=== PATIENT | female | born 1945 | race Caucasian/White ===

== ENCOUNTER → 2017-01-14 | Outpatient (CLI) | payer BC ==
[~2017-01-14] MED LIST: GLUCOPHAGE XR500 M1 PO; MOBIC 7.5MG7.5 MG PO; NORVASC 5MG5 MG/TAB PO
== END ==
LOC: MC.RAD 06:52
DX: Z12.31 Encounter for screening mammogram for malignant neoplasm of breast (principal)

== ENCOUNTER 2017-09-10 13:41 | Outpatient (CLI) | payer BC ==
[~2017-09-10] VITALS: Ht 152.4 cm; Wt 85.2 kg
[2017-09-10] MEDS ORDERED: TENORMIN 5050 MG/TAB PO (14:24)
[2017-09-10] MEDS ORDERED: LIPITOR20 MG PO (14:24)
[2017-09-10] MEDS ORDERED: EPA FISH OIL1 SGL PO (14:25)
[2017-09-10] MEDS ORDERED: VITAMIN D31000 I1 PO (14:25)
[2017-09-10] MEDS ORDERED: HYZAAR 25 MG-101 TAB PO (14:26)
[2017-09-10] MEDS ORDERED: CLARITIN 1010 MG/TAB PO (14:26)
[2017-09-10] MEDS ORDERED: NATURAL E400 IU PO (14:27)
[2017-09-10 14:29] VITALS: BP 147/63; PULSE 61; TEMP 97.7
== END 2017-09-10 15:00 | disposition home or self-care (01) ==
LOC: EUO 13:41
DX: M81.0 Age-related osteoporosis without current pathological fracture (principal)
CPT/HCPCS: J3489

== ENCOUNTER → 2018-01-15 | Outpatient (CLI) | payer BC ==
[~2018-01-15] MED LIST changes: +CLARITIN 1010 MG/TAB PO; +EPA FISH OIL1 SGL PO; +HYZAAR 25 MG-101 TAB PO; +LIPITOR20 MG PO; +NATURAL E400 IU PO; +TENORMIN 5050 MG/TAB PO; +VITAMIN D31000 I1 PO
== END ==
LOC: MC.RAD 13:33
DX: Z12.31 Encounter for screening mammogram for malignant neoplasm of breast (principal)

== ENCOUNTER 2018-07-30 14:44 | Outpatient (CLI) | payer BC ==
[~2018-07-30] VITALS: Ht 152.4 cm; Wt 85.1 kg
[2018-07-30 15:15] VITALS: BP 150/52; PULSE 64; TEMP 96.9
== END 2018-07-30 16:04 | disposition home or self-care (01) ==
LOC: EUO 14:44
DX: M81.0 Age-related osteoporosis without current pathological fracture (principal); Z79.899 Other long term (current) drug therapy
CPT/HCPCS: J3489

== ENCOUNTER → 2019-01-22 | Outpatient (CLI) | payer MEDICARE, BC | LOC: MC.RAD 07:01 | DX: Z12.31 Encounter for screening mammogram for malignant neoplasm of breast (principal) ==

== ENCOUNTER 2019-09-07 14:51 | Emergency (ER) | payer MEDICARE, BC ==
[~2019-09-07] VITALS: Ht 152.4 cm; Wt 78.0 kg
[2019-09-07 14:56] VITALS: TEMP 97.7
[2019-09-07 15:29] LABS: INR 2.8 (0.8-3.0)
[2019-09-07 15:33] LABS: ALANINE AMINOTRANSFERASE 12 U/L (9-52); ALBUMIN 4.1 gm/dL (3.5-5.0); ALKALINE PHOSPHATASE 79 U/L (50-136); ANION GAP 13 mmol/L (7-16); AST,SGOT 29 U/L (15-37); BILIRUBIN,TOTAL 0.5 mg/dL (0.0-1.0); BLOOD UREA NITROGEN 36 mg/dL (7-17); CARBON DIOXIDE 24 mmol/L (22-30); CHLORIDE 102 mmol/L (98-107); CREATININE, serum 1.35 (0.52-1.25); GLUCOSE 98 mg/dL (74-106); POTASSIUM 3.8 mmol/L (3.4-5.0); SODIUM 139 mmol/L (137-145); TOTAL PROTEIN 7.2 gm/dL (6.4-8.2)
[2019-09-07 15:36] LABS: C-REACTIVE PROTEIN 0.5 mg/dL (0.0-0.9)
[2019-09-07 15:41] LABS: TROPONIN-I < 0.012 ng/mL (0.000-0.035)
[2019-09-07 15:47] LABS: BASO # 0.1 (0.0-0.2); EOS # 0.1 (0.0-0.7); EOS % 1.8 % (0-4.0); GRAN % 53.9 % (42.2-75.2); HEMOGLOBIN 11.9 g/dl (12.5-16.0); LYMPH # 2.4 (1.2-3.4); LYMPH % 32.4 % (20.0-51.0); MEAN CELL VOLUME 92 fl (80.0-100.0); MEAN CORPUSCULAR HEMOGLOBIN 30 pg (27.0-31.0); MEAN CORPUSCULAR HGB CONC 33 g/dl (33.0-37.0); MONO # 0.8 (0.1-0.6); MONO % 10.5 % (1.7-9.3); PLATELET COUNT 285 K/mm3 (130-400); RED BLOOD COUNT 3.96 M/mm3 (4.10-5.30)
[2019-09-07 15:49] VITALS: BP 115/56
[2019-09-07 15:49] LABS: HEMATOCRIT 36.6 % (37.0-47.0)
[2019-09-07] MEDS ORDERED: ASPIRIN 81M81 MG/TA2 PO (16:06)
[2019-09-07] MEDS ORDERED: CORDARONE200 MG/TAB PO (16:06)
[2019-09-07] MEDS ORDERED: CALCIUM 600MG+D1 TAB PO (16:07)
[2019-09-07] MEDS ORDERED: JARDIANCE25 PO (16:07)
[2019-09-07] MEDS ORDERED: LASIX 20MG TABL20 MG PO (16:07)
[2019-09-07] MEDS ORDERED: GLUCOPHAGE1000 MG PO (16:08)
[2019-09-07] MEDS ORDERED: KLOR-CON SPRIN10 MEQ PO (16:08)
[2019-09-07] MEDS ORDERED: COUMADIN 5MG5 MG/TAB PO (16:08)
[2019-09-07] MEDS ORDERED: TENORMIN 2525 MG/TAB PO (16:10)
[2019-09-07 16:50] LABS: COLLECTION METHOD CLEAN CATCH
[2019-09-07 16:56] LABS: PH 5 (5-8); SQUAMOUS EPITHELIAL 0-2 /hpf; URINE APPEARANCE Hazy; URINE BACTERIA Rare /hpf; URINE BILIRUBIN Negative (NEGATIVE); URINE BLOOD 1+ (NEGATIVE); URINE COLOR Yellow; URINE GLUCOSE 3+ (NEGATIVE); URINE KETONE Negative (NEGATIVE); URINE LEUKOCYTE ESTERASE 2+ (NEGATIVE); URINE NITRATE Negative (NEGATIVE); URINE PROTEIN(semi-quant) Negative (NEGATIVE); URINE RBC 0-2 /hpf; URINE UROBILINOGEN Negative (NEGATIVE)
[2019-09-07 17:40] VITALS: PULSE 80
== END 2019-09-07 17:40 | disposition home or self-care (01) ==
LOC: COL.ER 14:51
PROVIDERS: Emergency Medicine
DX: N17.9 Acute kidney failure, unspecified (principal); I25.10 Atherosclerotic heart disease of native coronary artery without angina pectoris; E11.9 Type 2 diabetes mellitus without complications; I10 Essential (primary) hypertension; E78.00 Pure hypercholesterolemia, unspecified; Z95.1 Presence of aortocoronary bypass graft; Z95.9 Presence of cardiac and vascular implant and graft, unspecified; Z79.82 Long term (current) use of aspirin; Z79.84 Long term (current) use of oral hypoglycemic drugs; Z79.01 Long term (current) use of anticoagulants
CPT/HCPCS: J7030

== ENCOUNTER 2019-09-25 12:56 | Outpatient (CLI) | payer MEDICARE, BC ==
[~2019-09-25] VITALS: Ht 152.4 cm; Wt 76.0 kg
[~2019-09-25 12:56] MED LIST changes: +ASPIRIN 81M81 MG/TA2 PO; +CALCIUM 600MG+D1 TAB PO; +CORDARONE200 MG/TAB PO; +COUMADIN 5MG5 MG/TAB PO; +GLUCOPHAGE1000 MG PO; +JARDIANCE25 PO; +KLOR-CON SPRIN10 MEQ PO; +LASIX 20MG TABL20 MG PO; +TENORMIN 2525 MG/TAB PO
[2019-09-25 14:20] VITALS: BP 121/67; PULSE 75; TEMP 98.1
== END 2019-09-25 17:44 | disposition home or self-care (01) ==
LOC: EUO 12:56
DX: M81.0 Age-related osteoporosis without current pathological fracture (principal)
CPT/HCPCS: J3489

== ENCOUNTER 2019-11-20 14:18 | Outpatient (RCR) | payer MEDICARE, BC | END 2019-11-24 | disposition home or self-care (01) | LOC: COL.CR | DX: Z48.812 Encounter for surgical aftercare following surgery on the circulatory system (principal); Z95.1 Presence of aortocoronary bypass graft ==

== ENCOUNTER 2019-12-09 13:12 | Outpatient (RCR) | payer MEDICARE, BC | END 2019-12-16 15:31 | disposition home or self-care (01) | LOC: COL.CR 13:12 | DX: Z48.812 Encounter for surgical aftercare following surgery on the circulatory system (principal); Z95.1 Presence of aortocoronary bypass graft ==

== ENCOUNTER 2020-03-22 07:55 | Outpatient (CLI) | payer MEDICARE, BC ==
[2020-03-22] MEDS ORDERED: CALCIUM 600-D 61 TAB PO (08:32)
[2020-03-22] MEDS ORDERED: FERRALET 901 TAB PO (08:33)
[2020-03-22] MEDS ORDERED: TYLENOL 325MG325 MG PO (08:34)
[2020-03-22] MEDS ORDERED: PEPCID 20MG TAB20 MG PO (08:34)
[2020-03-22] MEDS ORDERED: LASIX 20MG TABL20 MG PO (08:36)
[2020-03-22] MEDS ORDERED: HYZAAR 25 MG-101 TAB PO (08:37)
[2020-03-22] MEDS ORDERED: LOPRESSOR 225 MG/TAB PO (08:37)
[2020-03-22] MEDS ORDERED: NITROSTAT0.4 MG/TAB SL (08:38)
[2020-03-22] MEDS ORDERED: VITAMIN D31000 I1 PO (08:39)
[2020-03-22] MEDS ORDERED: ZOFRAN 4MG T4 MG/TAB PO (08:39)
[2020-03-22] MEDS ORDERED: NATURAL E400 IU PO (08:40)
[2020-03-22] MEDS ORDERED: CEPHALEXIN500 M1 PO (09:15)
[2020-03-22 09:48] VITALS: BP 158/73; PULSE 78; TEMP 98.3
--- NOTE | 2020-03-22 09:48 | NUR ---
Discharge instructions given and transferred to private car by gordo
== END 2020-03-22 10:00 | disposition home or self-care (01) ==
LOC: COL.CAR 07:55
DX: I48.0 Paroxysmal atrial fibrillation (principal); I47.1 Supraventricular tachycardia

== ENCOUNTER 2020-07-26 05:18 | Day surgery (SDC) | payer MEDICARE, BC ==
[2020-07-26] VITALS (12 sets, daily range): BP systolic 113–153; BP diastolic 40–77; PULSE 57–77; TEMP 98–99.3
[~2020-07-26] VITALS: Ht 152.4 cm; Wt 81.0 kg
[~2020-07-26 05:18] MED LIST changes: +CALCIUM 600-D 61 TAB PO; +CEPHALEXIN500 M1 PO; +COUMADIN 1010 MG/TAB PO; -COUMADIN 5MG5 MG/TAB PO; +COUMADIN 77.5 MG/TAB PO; +DULCOLAX STOOL100 MG PO; +FERRALET 901 TAB PO; +FERRO-TIME325 MG PO; +FISH OIL 1000MG1 CAP PO; +FOLIC ACID 11 MG/TA1 PO; -GLUCOPHAGE1000 MG PO; +LOPRESSOR 225 MG/TAB PO; +MICONAZOLE 72% VG; +MOBIC15 MG PO; +NITROSTAT0.4 MG/TAB SL; +PEPCID 20MG TAB20 MG PO; +TUMS ULTRA ST1000 MG PO; +TYLENOL 325MG325 MG PO; +VITAMINC1000TA PO; +ZOFRAN 4MG T4 MG/TAB PO
[2020-07-26 05:56] LABS: PROTHROMBIN TIME 10.9 SECONDS (9.7-12.8)
--- NOTE | 2020-07-26 09:45 | NUR ---
PT TO ROOM 328 PER BED WITH REPORT FROM ASHLEY CARRILLO PACU @ 0927. LUNGS CTA, BOWEL SOUNDS HYPO, DRESSING TO LEFT KNEE CDI WITH ABNER WRAP OVER GAUZE. SCDS AND TEDS APPLIED ORDERED. IV TO PUMP.
--- NOTE | 2020-07-26 11:29 | NUR ---
SW met with the patient to discuss discharge plan. The patient lives in [place] with her , Natan (ph#[phone]). She reports independence with ADLs and has a cane and FWW. The patient's PCP is Dr. Kamlesh Ramirez and she receives her medications at [facility]. She reports no difficulties obtaining her meds. The patient does not have advanced directives and she was not interested in completing a DPOA-HC at this time. The patient plans to return home with her and receive outpatient PT at [facility] upon discharge. No additional needs at this time.
--- NOTE | 2020-07-26 11:56 | NUR ---
PT RESTING IN BED EATING LUNCH. DENIES PAIN OR NEEDS AT THIS TIME.
--- NOTE | 2020-07-26 13:04 | NUR ---
PT UP TO BR WITH SBAX1. HAD LG BM AND VOIDED. RETURNED TO RECLINER. IV FLUIDS COMPLETE. PT EATING AND DRINKING WITH NO N/V. Operative leg elevated on pillow and ice bag applied.
--- NOTE | 2020-07-26 20:30 | NUR ---
Initial shift assessment done- states would like 2 [place] before bed tonight- states left knee pain 03/27-- manuel wrap dry, ice to knee, SCD,s on bilaterally. Taking food/fluids without nausea. Using IS every hour while awake. Up to bathroom with walker and assist-tolerated well, voiding clear yellow urine.
--- NOTE | 2020-07-26 22:00 | NUR ---
Did receive [place] 2 tabs about an hour ago-- now up in [place] for short walk with walker and assistance- tolerated well.
[2020-07-27 00:10] VITALS: BP 131/56; PULSE 72; TEMP 98.3
[2020-07-27 03:44] VITALS: BP 131/59; PULSE 71; TEMP 98.3
--- NOTE | 2020-07-27 05:51 | NUR ---
Sleeping well tonight, has not requested pain meds since before bed- new ice to left knee , VSS, has been up to void 3-4 times last night
[2020-07-27 07:21] VITALS: BP 150/65; PULSE 72; TEMP 97.8
[2020-07-27 08:16] LABS: HEMATOCRIT 37.2 % (37.0-47.0); HEMOGLOBIN 12.2 g/dl (12.5-16.0)
--- NOTE | 2020-07-27 08:56 | NUR ---
PT C/O PAIN 06/27. PO PAIN MEDS GIVEN ORDERED. ABNER WRAP REMOVED TEDS APPLIED. ENCOURAGED PT TO CONTINUE TO SIT IN RECLINER. EDUCATED PT ON IMPORTANCE OF KEEPING LEG STRAIGHT AND NOT RESTING WITH A BEND IN THE KNEE. PT VERBALIZED UNDERSTANDING.
--- NOTE | 2020-07-27 10:49 | NUR ---
First visit from the email operations manager. No needs right now.
[2020-07-27 11:22] VITALS: BP 166/54; PULSE 65; TEMP 98.2
--- NOTE | 2020-07-27 16:05 | NUR ---
DISCHARGE INSTRUCTIONS REVIEWED WITH PT. QUESTIONS ANSWERED, PATIENT WAITING FOR RIDE.
--- NOTE | 2020-07-27 16:44 | NUR ---
DISCHARGE INSTRUCTIONS GIVEN TO PT. QUESTIONS ANSWERED. PRESCRIPTIONS GIVEN. PT TO FRONT IN WHEEL CHAIR.
== END 2020-07-27 16:46 | disposition home or self-care (01) ==
LOC: SDCO 05:18 → JCC 07:30 → EDSTATUS 07:30 → JCC 07-27 16:46 → SDCO 07-27 16:46
PROVIDERS: Orthopaedic Surgery Sports Medicine; Registered Nurse
DX: M17.12 Unilateral primary osteoarthritis, left knee (principal); E11.9 Type 2 diabetes mellitus without complications; E78.5 Hyperlipidemia, unspecified; I11.9 Hypertensive heart disease without heart failure; I35.0 Nonrheumatic aortic (valve) stenosis; I47.1 Supraventricular tachycardia; I48.91 Unspecified atrial fibrillation; G47.33 Obstructive sleep apnea (adult) (pediatric); Z95.818 Presence of other cardiac implants and grafts; Z98.51 Tubal ligation status; Z95.1 Presence of aortocoronary bypass graft; Z79.899 Other long term (current) drug therapy; Z79.01 Long term (current) use of anticoagulants; Z79.84 Long term (current) use of oral hypoglycemic drugs; Z20.828 Contact with and (suspected) exposure to other viral communicable diseases; Z85.828 Personal history of other malignant neoplasm of skin; Z79.82 Long term (current) use of aspirin
CPT/HCPCS: A9284; C1776; J0690; J1815; J2250; J2405; J2704; J3010; J7030

== ENCOUNTER → 2021-02-06 | Outpatient (CLI) | payer MEDICARE, BC ==
[~2021-02-06] MED LIST changes: -CALCIUM 600-D 61 TAB PO; +LIPITOR 40MG TA40 MG PO; -LIPITOR20 MG PO; +LOPRESSOR100 MG PO; +PACERONE200 MG PO; +SUPER CALCIUM W1 TA2 PO
== END ==
LOC: COL.RAD 08:00
DX: Z20.822 Contact with and (suspected) exposure to COVID-19 (principal)

== ENCOUNTER 2021-02-23 09:19 | Day surgery (SDC) | payer MEDICARE, BC ==
[~2021-02-23] VITALS: Ht 152.4 cm; Wt 78.2 kg
[~2021-02-23 09:19] MED LIST changes: -LOPRESSOR100 MG PO; -PACERONE200 MG PO
[2021-02-23] MEDS ORDERED: LOPRESSOR100 MG PO (09:57)
[2021-02-23] MEDS ORDERED: PACERONE200 MG PO ×2 (10:02→10:21)
[2021-02-23 10:04] VITALS: BP 133/65; PULSE 49; TEMP 98.7
--- NOTE | 2021-02-23 13:20 | NUR ---
Dr. Mckee has been in to see pt and discuss poc. Cardioversion cancelled. Pt is noted to have a rhythm change at time of departure, rate 80's-90's, irregular. Dr. Mckee informed through Noreen CARRILLO. Due to paroxysmal nature of the AFIB, plan remains to dc patient with instructions to take her amiodarone 200 mg BID and follow up with cardiology. Pt verbalized understanding of instructions. No iv was initiated during pt's visit. I walked with pt to exit with her .
== END 2021-02-23 11:00 | disposition home or self-care (01) ==
LOC: COL.CAR 09:19
DX: I48.0 Paroxysmal atrial fibrillation (principal); E11.9 Type 2 diabetes mellitus without complications; I10 Essential (primary) hypertension; I25.10 Atherosclerotic heart disease of native coronary artery without angina pectoris; K21.9 Gastro-esophageal reflux disease without esophagitis; G47.33 Obstructive sleep apnea (adult) (pediatric); E78.5 Hyperlipidemia, unspecified; M19.90 Unspecified osteoarthritis, unspecified site; Z96.652 Presence of left artificial knee joint; Z88.8 Allergy status to other drugs, medicaments and biological substances; Z79.82 Long term (current) use of aspirin; Z79.01 Long term (current) use of anticoagulants; Z53.8 Procedure and treatment not carried out for other reasons

== ENCOUNTER 2022-02-22 14:27 | Inpatient (IN) | payer MEDICARE, BC ==
[~2022-02-22] VITALS: Ht 152.4 cm; Wt 80.4 kg
[~2022-02-22 14:27] MED LIST changes: +LOPRESSOR100 MG PO; +MULTAQ400 MG PO; +PACERONE200 MG PO
[2022-02-28 09:15] VITALS: BP 96/84; PULSE 143; TEMP 98.1
[2022-02-28 09:26] LABS: BASO % 0.8 % (0.0-2.0); EOS # 0.1 K/mm3 (0.0-0.7); EOS % 1.3 % (0.0-4.0); GRAN # 2.7 K/mm3 (1.4-6.5); GRAN % 56.9 % (42.2-75.2); HEMATOCRIT 41.6 % (37.0-47.0); LYMPH # 1.3 K/mm3 (1.2-3.4); LYMPH % 26.3 % (20.0-51.0); MEAN CELL VOLUME 89 fl (80.0-100.0); MEAN CORPUSCULAR HEMOGLOBIN 30 pg (27-31); MEAN CORPUSCULAR HGB CONC 34 g/dl (33.0-37.0); MEAN PLATELET VOLUME 9.8 fl (7.4-10.4); MONO # 0.7 K/mm3 (0.1-0.6); MONO % 14.5 % (1.7-9.3); PLATELET COUNT 218 K/mm3 (130-400); REDCELL DISTRIBUTION WIDTH-CV 14.2 % (11.5-14.5)
[2022-02-28 09:34] LABS: INR 2.8 (0.8-3.0); PROTHROMBIN TIME 30.9 SECONDS (9.7-12.8)
[2022-02-28 09:42] LABS: BILIRUBIN,TOTAL 0.8 mg/dL (0.2-1.2); CALCIUM 9.8 mg/dL (8.4-10.2); CREATININE, serum 1.1 mg/dL (0.57-1.11); MAGNESIUM 1.5 mg/dL (1.6-2.6); POTASSIUM 3.9 mmol/L (3.5-4.5); TOTAL PROTEIN 6.8 gm/dL (6.2-8.1)
[2022-02-28 12:31] VITALS: BP 114/75; PULSE 117; TEMP 98
[2022-02-28 15:18] VITALS: BP 107/71; PULSE 68; TEMP 98.5
--- NOTE | 2022-02-28 19:25 | NUR ---
Pt tolerated first dose of Sotalol without issues. No chest pain, dizziness or palpitations. IV started in Express to LFA. POC discussed with patient. No needs at this time.
--- NOTE | 2022-02-28 20:00 | NUR ---
PATIENT IS A&O. NOTED ELEVATED HR IN LOW 100'S ON TELE, IRREGULAR. PATIENT IS SOTOLOL DAY 1. ALL OTHER VSS. DENIES CHEST PAIN, SOA OR DIZZINESS. INDEPENDENT IN ROOM. NO C/O N/V. LEFT FORARM IV TO INT. HS MEDS GIVEN. HEAD TO TOE ASSESSMENT COMPLETE. NO OTHER NEEDS AT THIS TIME. CALL LIGHT IN REACH.
[2022-02-28 20:26] VITALS: BP 110/93; PULSE 80; TEMP 98.1
[2022-03-01] VITALS (7 sets, daily range): BP systolic 97–153; BP diastolic 54–88; PULSE 51–88; TEMP 97.6–98.3
[2022-03-01 06:33] LABS: BASO # 0.1 K/mm3 (0.0-0.2); BASO % 1.2 % (0.0-2.0); EOS # 0.1 K/mm3 (0.0-0.7); EOS % 2.6 % (0.0-4.0); GRAN % 46.7 % (42.2-75.2); HEMATOCRIT 40.8 % (37.0-47.0); HEMOGLOBIN 13.4 g/dl (12.5-16.0); LYMPH # 1.6 K/mm3 (1.2-3.4); LYMPH % 37.7 % (20.0-51.0); MEAN CELL VOLUME 91 fl (80.0-100.0); MEAN CORPUSCULAR HEMOGLOBIN 30 pg (27-31); MEAN CORPUSCULAR HGB CONC 33 g/dl (33.0-37.0); MEAN PLATELET VOLUME 9.7 fl (7.4-10.4); MONO # 0.5 K/mm3 (0.1-0.6); MONO % 11.6 % (1.7-9.3); PLATELET COUNT 209 K/mm3 (130-400); REDCELL DISTRIBUTION WIDTH-CV 13.8 % (11.5-14.5)
[2022-03-01 06:44] LABS: CALCIUM 9.1 mg/dL (8.4-10.2); CREATININE, serum 0.9 mg/dL (0.57-1.11); MAGNESIUM 1.9 mg/dL (1.6-2.6); POTASSIUM 3.7 mmol/L (3.5-4.5)
--- NOTE | 2022-03-01 08:11 | NUR ---
Rafi contacted regarding elevated QTC 534, this RN instructed to give medication.
[2022-03-01 08:28] LABS: INR 2.8 (0.8-3.0); PROTHROMBIN TIME 31.1 SECONDS (9.7-12.8)
--- NOTE | 2022-03-01 10:28 | NUR ---
Initial visit; Patient thanked [facility] for looking in on her and offering God's blessings.
--- NOTE | 2022-03-01 12:15 | NUR ---
smokehouse worker met with patient to discuss discharge plan. Patient currently lives at home with her Natan ([phone]) in [place]. She reports to being fully independent with her ADL's and does not utilize any DME equipment to assist with mobility. She has no home oxygen needs. PCP is Dr. Ramirez and she utilizes [facility] for medications with no cost difficulty. Patient reports that she does not have a DPOA-HC established and is not interested in creating one at this time. Education provided and the patient verbalizes her understanding. In addition to her she has 5 childre, all daughters; Kimberli, Norma, Lissette,Tatiana and Grace. Patient is planning on returning home once medically ready. Discharge plan: Home
--- NOTE | 2022-03-01 18:26 | NUR ---
Scheduled medications given. Shift assessment performed. Patient denies any pain, discomfort, or further needs at this time. SOA upon exertion noted. Patient scheduled for cardioversion tmrw AM. NPO at midnight, consent signed and on the chart. VSS. Patient A&O.
--- NOTE | 2022-03-01 22:13 | NUR ---
Patient assessed around 2034. Alert and oriented x 4, and able to make needs known. Denies having pain and discomfort. Peripheral INT to left forearm. Reports SOB and dyspnea with exertion, denies at rest. LS CTA. HRI. Telemetry in place. BSAx4. Voices no questions, needs, or concerns at this time. Aware that she is scheduled to have cardioversion tomorrow morning, and that she is NPO after midnight. Consent is signed and on the chart. In bed with call light within reach.
--- NOTE | 2022-03-01 23:03 | NUR ---
Telemetry had called and stated that it looked like patient had converted to NS. Ordered EKG and called RT: sinus rhythm with occasional supraventricular premature complexes.
[2022-03-02 03:51] VITALS: BP 138/62; PULSE 54; TEMP 98
--- NOTE | 2022-03-02 05:55 | NUR ---
Patient has denied pain and discomfort this shift. Currently in sinus rhythm, bradycardia withe HR in the 50s. Voices no questions, needs, or concerns at this time. In bed with call light within reach.
[2022-03-02 06:53] LABS: BASO % 0.9 % (0.0-2.0); EOS # 0.1 K/mm3 (0.0-0.7); EOS % 2.2 % (0.0-4.0); GRAN # 2.6 K/mm3 (1.4-6.5); GRAN % 55.1 % (42.2-75.2); HEMATOCRIT 39.3 % (37.0-47.0); HEMOGLOBIN 13.2 g/dl (12.5-16.0); LYMPH # 1.4 K/mm3 (1.2-3.4); LYMPH % 29.7 % (20.0-51.0); MEAN CELL VOLUME 89 fl (80.0-100.0); MEAN CORPUSCULAR HEMOGLOBIN 30 pg (27-31); MEAN CORPUSCULAR HGB CONC 34 g/dl (33.0-37.0); MEAN PLATELET VOLUME 10.2 fl (7.4-10.4); MONO # 0.6 K/mm3 (0.1-0.6); MONO % 11.9 % (1.7-9.3); PLATELET COUNT 207 K/mm3 (130-400); REDCELL DISTRIBUTION WIDTH-CV 13.7 % (11.5-14.5)
[2022-03-02 06:58] LABS: INR 3.5 (0.8-3.0); PROTHROMBIN TIME 39.8 SECONDS (9.7-12.8)
[2022-03-02 07:10] LABS: CALCIUM 9.2 mg/dL (8.4-10.2); CREATININE, serum 0.94 mg/dL (0.57-1.11); MAGNESIUM 1.6 mg/dL (1.6-2.6); POTASSIUM 3.7 mmol/L (3.5-4.5)
--- NOTE | 2022-03-02 07:36 | NUR ---
Rafi contacted regarding QTC of 524, Instructed to give sotalol.
[2022-03-02 08:02] VITALS: BP 129/62; PULSE 55; TEMP 97.9
--- NOTE | 2022-03-02 08:27 | NUR ---
Scheduled medications given. Shift assessment performed. VSS. Patient A&O. Patient has converted to SB. Cardioversion cancelled. Patient denies any pain, discomfort, SOA, or futher needs at this time. Call light in reach. Tele in place.
[2022-03-02] MEDS ORDERED: BETAPACE 120MG120 MG PO (11:01)
[2022-03-02 11:22] VITALS: BP 99/44; PULSE 51; TEMP 98
--- NOTE | 2022-03-02 12:50 | NUR ---
Patient deemed fit for discharge. IV DC'd, catheter intact, no signs of phlebitis. Discharge education/instructions given. All questions answered. VSS. Patient A&O. Patient denies any pain, discomfort, SOA, or further needs at this time. Patient escorted from building via wheelchair by [facility] Staff. transporting home.
== END 2022-03-02 12:00 | disposition home or self-care (01) | DRG 310 ==
LOC: MEDICAL 02-28 08:21
PROVIDERS: ADMIT Internal Medicine Cardiovascular Disease
DX: I48.0 Paroxysmal atrial fibrillation (principal); I25.10 Atherosclerotic heart disease of native coronary artery without angina pectoris; I10 Essential (primary) hypertension; E78.5 Hyperlipidemia, unspecified; I44.7 Left bundle-branch block, unspecified; Z95.1 Presence of aortocoronary bypass graft; Z79.01 Long term (current) use of anticoagulants; Z23 Encounter for immunization
CPT/HCPCS: A9270; J3475

== ENCOUNTER 2023-02-11 08:24 | Observation (INO) | payer MEDICARE, BC ==
[~2023-02-11] VITALS: Ht 152.4 cm; Wt 75.9 kg
[~2023-02-11 08:24] MED LIST changes: +BETAPACE 120MG120 MG PO
[2023-02-11 09:17] LABS: BASO # 0.1 K/mm3 (0.0-0.2); BASO % 1.1 % (0.0-2.0); EOS # 0.1 K/mm3 (0.0-0.7); EOS % 1.3 % (0.0-4.0); GRAN # 2.5 K/mm3 (1.4-6.5); GRAN % 54.1 % (42.2-75.2); HEMATOCRIT 39.8 % (37.0-47.0); HEMOGLOBIN 13.3 g/dl (12.5-16.0); LYMPH # 1.5 K/mm3 (1.2-3.4); LYMPH % 31.7 % (20.0-51.0); MEAN CELL VOLUME 90 fl (80.0-100.0); MEAN CORPUSCULAR HEMOGLOBIN 30 pg (27-31); MEAN CORPUSCULAR HGB CONC 33 g/dl (33.0-37.0); MEAN PLATELET VOLUME 9.8 fl (7.4-10.4); MONO # 0.5 K/mm3 (0.1-0.6); MONO % 11.6 % (1.7-9.3); PLATELET COUNT 274 K/mm3 (130-400); RED BLOOD COUNT 4.44 M/mm3 (4.10-5.30); REDCELL DISTRIBUTION WIDTH-CV 13.3 % (11.5-14.5)
[2023-02-11 09:25] LABS: INR 2.8 (0.8-3.0); PROTHROMBIN TIME 32.8 SECONDS (9.7-12.8)
[2023-02-11 09:32] LABS: ALANINE AMINOTRANSFERASE 20 U/L (0-55); ALBUMIN 3.7 gm/dL (3.4-4.8); ALKALINE PHOSPHATASE 45 U/L (40-150); ANION GAP 13 mmol/L (7-16); AST,SGOT 18 U/L (5-34); BILIRUBIN,TOTAL 0.5 mg/dL (0.2-1.2); BLOOD UREA NITROGEN 25 mg/dL (10-20); CALCIUM 9.6 mg/dL (8.4-10.2); CARBON DIOXIDE 23 mmol/L (23-31); CHLORIDE 106 mmol/L (98-107); CREATININE, serum 0.88 mg/dL (0.57-1.11); GLUCOSE 105 mg/dL (70-99); POTASSIUM 3.8 mmol/L (3.5-4.5); SODIUM 142 mmol/L (136-145); TOTAL PROTEIN 6.8 gm/dL (6.2-8.1)
[2023-02-11 09:44] LABS: TROPONIN-I < 0.010 ng/mL (0.00-0.033)
[2023-02-11 11:26] VITALS: BP 119/80; PULSE 114; TEMP 97.4
--- NOTE | 2023-02-11 11:31 | NUR ---
PATIENT AWAKE AND ALERT, RESTING IN BED. NO NEEDS OR COMPLAINTS. VITAL SIGNS STABLE. ADDMISSION INTAKE AND ASSESSMENT COMPLETE. PATIENT AWARE SHE IS NPO UNTIL FURTHER NOTICE FROM MD OFFICE CLERK ROUTINE.
[2023-02-11] MEDS ORDERED: COUMADIN 77.5 MG/TAB PO (13:20)
[2023-02-11 16:10] VITALS: BP 102/55; PULSE 85; TEMP 97.9
--- NOTE | 2023-02-11 18:47 | NUR ---
PATIENT AWAKE AND ALERT, RESTING IN BED, NO NEEDS OR COMPLAINTS AT THIS TIME. CARDIOVERSION CONSENT ON CHART. CALL LIGHT WITHIN REACH.
[2023-02-11 19:25] VITALS: BP 119/76; PULSE 102; TEMP 97.5
[2023-02-12] VITALS (14 sets, daily range): BP systolic 98–151; BP diastolic 30–90; PULSE 20–87; TEMP 97.3–98
[2023-02-12 07:09] LABS: INR 2.6 (0.8-3.0); PROTHROMBIN TIME 30.3 SECONDS (9.7-12.8)
[2023-02-12 07:21] LABS: CALCIUM 9.1 mg/dL (8.4-10.2); CREATININE, serum 0.77 mg/dL (0.57-1.11); POTASSIUM 3.7 mmol/L (3.5-4.5)
[2023-02-12 07:30] LABS: BASO % 0.9 % (0.0-2.0); EOS # 0.1 K/mm3 (0.0-0.7); EOS % 1.9 % (0.0-4.0); GRAN # 2.1 K/mm3 (1.4-6.5); GRAN % 48.2 % (42.2-75.2); HEMATOCRIT 38.3 % (37.0-47.0); HEMOGLOBIN 13.3 g/dl (12.5-16.0); LYMPH # 1.6 K/mm3 (1.2-3.4); LYMPH % 37.1 % (20.0-51.0); MEAN CELL VOLUME 88 fl (80.0-100.0); MEAN CORPUSCULAR HEMOGLOBIN 31 pg (27-31); MEAN CORPUSCULAR HGB CONC 35 g/dl (33.0-37.0); MEAN PLATELET VOLUME 9.6 fl (7.4-10.4); MONO # 0.5 K/mm3 (0.1-0.6); MONO % 11.7 % (1.7-9.3); PLATELET COUNT 249 K/mm3 (130-400); RED BLOOD COUNT 4.36 M/mm3 (4.10-5.30); REDCELL DISTRIBUTION WIDTH-CV 13.2 % (11.5-14.5)
--- NOTE | 2023-02-12 08:26 | NUR ---
Call received from laboratory technician about schedule time for pt int. Pt notified.
--- NOTE | 2023-02-12 09:04 | NUR ---
Call placed to dr Jensen reporting last QTc 539. Ordered to proceed to give sotalol.
--- NOTE | 2023-02-12 09:41 | NUR ---
MIMA met with the patient to discuss discharge plan. The patient lives in [place] with her , Natan (ph#[phone]). She reports independence with ADLs and does not have any DME. The patient's PCP is Dr. Kamlesh Ramirez and she receives her medications from [facility]. The patient does not have a DPOA-HC, but she was interested in obtaining a form. MIMA provided. The patient plans to return home with her upon discharge. No additional needs at this time. *Discharge plan: home with *
--- NOTE | 2023-02-12 13:54 | NUR ---
Initial visit: Pt was resting and content. Final Rail Cutter stopped by room on rounds. Pt has no needs right now. Final Rail Cutter will follow up as needed.
--- NOTE | 2023-02-12 14:45 | NUR ---
Patient is back in her room after cardioversion. States feeling ok. VSS. Continue monitoring.
[2023-02-13 00:12] VITALS: BP 147/59; PULSE 58; TEMP 98.2
[2023-02-13 04:46] VITALS: BP 153/54; BP 163/83; PULSE 54; TEMP 98.1
[2023-02-13 07:01] LABS: BASO # 0.1 K/mm3 (0.0-0.2); BASO % 1.2 % (0.0-2.0); EOS # 0.1 K/mm3 (0.0-0.7); EOS % 1.6 % (0.0-4.0); GRAN # 2.1 K/mm3 (1.4-6.5); HEMATOCRIT 38.1 % (37.0-47.0); HEMOGLOBIN 12.4 g/dl (12.5-16.0); LYMPH # 1.5 K/mm3 (1.2-3.4); LYMPH % 34.5 % (20.0-51.0); MEAN CELL VOLUME 91 fl (80.0-100.0); MEAN CORPUSCULAR HEMOGLOBIN 30 pg (27-31); MEAN CORPUSCULAR HGB CONC 33 g/dl (33.0-37.0); MEAN PLATELET VOLUME 9.8 fl (7.4-10.4); MONO # 0.6 K/mm3 (0.1-0.6); MONO % 13.5 % (1.7-9.3); PLATELET COUNT 265 K/mm3 (130-400); RED BLOOD COUNT 4.17 M/mm3 (4.10-5.30); REDCELL DISTRIBUTION WIDTH-CV 13.2 % (11.5-14.5)
[2023-02-13 07:05] LABS: POTASSIUM 3.6 mmol/L (3.5-4.5)
[2023-02-13 07:08] LABS: INR 2.7 (0.8-3.0); PROTHROMBIN TIME 31.1 SECONDS (9.7-12.8)
[2023-02-13 07:24] LABS: CALCIUM 9.4 mg/dL (8.4-10.2); CREATININE, serum 0.87 mg/dL (0.57-1.11); MAGNESIUM 1.7 mg/dL (1.6-2.6)
[2023-02-13 07:55] VITALS: BP 137/67; PULSE 53; TEMP 98.1
--- NOTE | 2023-02-13 09:05 | NUR ---
Assessment complete. A/O x4. Sitting up at side of bed eating breakfast. Reports chronic cough and SOA. Denies pain or needs at this time.
[2023-02-13] MEDS ORDERED: BETAPACE160 MG PO (10:22)
[2023-02-13 11:59] VITALS: BP 133/69; PULSE 62; TEMP 98
--- NOTE | 2023-02-13 16:05 | NUR ---
Discharge instructions reviewed with pt- she verbalizes understanding. INT to RH d/c'd with cath tip intact. Tele d/c'd. Pt escorted to private vehicle via w/c and discharged home with .
== END 2023-02-13 16:00 | disposition home or self-care (01) ==
LOC: COL.ER 08:24 → MEDICAL 10:17
PROVIDERS: Personal Emergency Response Attendant; Physician Assistant; ADMIT Internal Medicine
DX: I48.91 Unspecified atrial fibrillation (principal); I25.10 Atherosclerotic heart disease of native coronary artery without angina pectoris; I10 Essential (primary) hypertension; E11.9 Type 2 diabetes mellitus without complications; E78.5 Hyperlipidemia, unspecified; Z79.899 Other long term (current) drug therapy; Z79.01 Long term (current) use of anticoagulants; Z95.1 Presence of aortocoronary bypass graft; Z79.84 Long term (current) use of oral hypoglycemic drugs; Z95.818 Presence of other cardiac implants and grafts
CPT/HCPCS: A9270; G0378; J2704